=== PATIENT | female | born 1985 | race Caucasian/White ===

== ENCOUNTER 2017-01-19 15:59 | Emergency (ER) | payer SELFPAY ==
[2017-01-19 16:16] VITALS: BP 134/87
--- NOTE | 2017-01-19 17:08 | RAD ---
INDICATION: Right ankle injury. TECHNIQUE: 3 views of the right ankle were obtained. FINDINGS: Soft tissue swelling is noted along the anterolateral aspect of the ankle. No fracture is seen. Joint spaces appear maintained. IMPRESSION: SOFT TISSUE SWELLING, NO FRACTURE IS SEEN.
--- NOTE | 2017-01-19 17:09 | RAD ---
INDICATION: Right foot injury. TECHNIQUE: 2 views of the right foot were obtained. FINDINGS: The bones are normal alignment. No fracture is seen. Joint spaces appear maintained. IMPRESSION: NO EVIDENCE FOR FRACTURE.
[2017-01-19] MEDS ORDERED: Naproxen TAB* 250 MG PO ONE (17:13)
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
== END 2017-01-19 17:31 | disposition home or self-care (01) ==
LOC: UCEAST 15:59
DX: S93.401A Sprain of unspecified ligament of right ankle, initial encounter (principal); X50.1XXA Overexertion from prolonged static or awkward postures, initial encounter; Y93.89 Activity, other specified; Y92.89 Other specified places as the place of occurrence of the external cause; Y99.0 Civilian activity done for income or pay; F12.90 Cannabis use, unspecified, uncomplicated; F17.210 Nicotine dependence, cigarettes, uncomplicated
CPT/HCPCS: 99213; A9270-GY; G0463

== ENCOUNTER 2017-03-20 23:05 | Emergency (ER) | payer OTHER ==
[2017-03-20 23:22] VITALS: BP 116/89
== END 2017-03-20 23:38 | disposition left against medical advice (07) ==
LOC: ED 23:05
DX: R11.10 Vomiting, unspecified (principal); Z53.21 Procedure and treatment not carried out due to patient leaving prior to being seen by health care provider

== ENCOUNTER 2017-10-16 05:35 | Emergency (ER) | payer SELFPAY ==
[2017-10-16] MEDS ORDERED: oxyCODONE/Acetamin 5/325 MG* TAB PO ONE (06:04)
[2017-10-16] MEDS ORDERED: Ibuprofen TAB* 800 MG PO ONE (06:04)
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
[2017-10-16 09:06] VITALS: BP 154/92
== END 2017-10-16 09:05 ==
LOC: ED 05:35
DX: R51 Headache (principal); Z04.71 Encounter for examination and observation following alleged adult physical abuse
CPT/HCPCS: 70450; 70486; 72125; A9270-GY

== ENCOUNTER 2018-03-18 03:32 | Emergency (ER) | payer OTHER ==
[2018-03-18] MEDS ORDERED: diPHENhydraMINE IV* 50 MG/ML 1 ml VIAL (BENADRYL) ONE (03:53)
[2018-03-18] MEDS ORDERED: LORazepam INJ* 2 MG/ML 1 ML VIAL ONE (03:53)
[2018-03-18] MEDS ORDERED: Haloperidol INJ IV/IM* 5 MG/ML AMP ONE (03:54)
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
[2018-03-18] MEDS ORDERED: Haloperidol INJ IV/IM* 5 MG/ML AMP IM ONE (04:10)
[2018-03-18] MEDS ORDERED: LORazepam INJ* 2 MG/ML 1 ML VIAL IM ONE (04:10)
[2018-03-18] MEDS ORDERED: diPHENhydraMINE IV* 50 MG/ML 1 ml VIAL (BENADRYL) IM ONE (04:11)
[2018-03-18 04:13] LABS: Urine Appearance Clear; Urine Blood Negative (Negative); Urine Color Straw; Urine Ketones Negative (Negative); Urine Protein Negative (Negative); Urine Specific Gravity 1.002 (1.010-1.030); Urine Urobilinogen Negative (Negative)
[2018-03-18 04:51] LABS: ABS Basophils 0.2 10^3/ul (0-0.2); ABS Eosinophils 0.5 10^3/ul (0-0.6); ABS Lymphocytes 2.2 10^3/ul (1.0-4.8); ABS Monocytes 0.6 10^3/ul (0-0.8); ABS Nucleated RBC 0 10^3/ul; Eosinophil % 5.4 % (0-6); Hematocrit 45 % (35-47); Hemoglobin 15.5 g/dl (12.0-16.0); Lymphocyte % 26.3 % (25-47); Mean Corpuscular HGB Conc 35 g/dl (31-36); Mean Corpuscular Hemoglobin 29 pg (27-31); Mean Corpuscular Volume 85 fL (80-97); Mean Platelet Volume 8.4 um3 (7.4-10.4); Nucleated Red Blood Cells % 0.1; Platelet Count 280 10^3/ul (150-450); Red Blood Count 5.26 10^6/ul (4.00-5.40); Red Cell Distribution Width 14 % (10.5-15); White Blood Count 8.4 10^3/ul (3.5-10.8)
[2018-03-18 05:09] LABS: EGFR Non-African American 88.5 (>60)
--- NOTE | 2018-03-18 07:13 | ED ---
Course/Dx - Diagnoses Provider Diagnoses: Alcohol intoxication Discharge - Discharge Plan Referrals: Jorge Hernandez MD [Primary Care Provider] -
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
[2018-03-18 16:14] VITALS: BP 125/87
== END 2018-03-18 16:05 | disposition home or self-care (01) ==
LOC: ED 03:32
DX: F10.129 Alcohol abuse with intoxication, unspecified (principal); S09.90XA Unspecified injury of head, initial encounter; W19.XXXA Unspecified fall, initial encounter; F17.210 Nicotine dependence, cigarettes, uncomplicated
CPT/HCPCS: 36415; 70450; 80053; 80307; 80320; 80329; 81003; 84443; 84702; 85025; 96372; 99284; G0480; J1200; J1630; J2060

== ENCOUNTER 2018-04-12 17:24 | Emergency (ER) | payer MEDICAID ==
[2018-04-12 17:55] VITALS: BP 128/88
--- NOTE | 2018-04-12 18:27 | RAD ---
Indication: Right wrist injury. 3 views of the wrist demonstrates no fracture. No other bone or joint abnormality is identified. IMPRESSION: NO FRACTURE OF THE WRIST IS NOTED.
[2018-04-12] MEDS ORDERED: Ibuprofen TAB* 400 MG PO ONE (18:53)
== END 2018-04-12 19:40 | disposition left against medical advice (07) ==
LOC: UCEAST 17:24
DX: S69.91XA Unspecified injury of right wrist, hand and finger(s), initial encounter (principal); X58.XXXA Exposure to other specified factors, initial encounter; Y93.9 Activity, unspecified; Y92.9 Unspecified place or not applicable
CPT/HCPCS: 99212; A9270-GY; G0463

== ENCOUNTER → 2019-01-27 16:57 | Emergency (ER) | payer OTHER ==
[2019-01-27 17:12] VITALS: BP 143/91
--- NOTE | 2019-01-27 17:38 | UC ---
Throat Pain/Nasal Kartik HPI - HPI Summary HPI Summary: 33 yo female presents with left eye redness and drainage for the last 2 days. Also has some sinus pain/pressure/congestion for the last week. Also has left upper tooth pain and swelling with ?abscess for the last 2 weeks. She has been taking tylenol with no relief of her symptoms. She is tolerating po well and eating and drinking as normal. Denies fever, chills, sore throat, cough, rash. - History of Current Complaint Chief Complaint: UCEye Stated Complaint: EYE COMPLAINT BODY ACHES Time Seen by Provider: 01/27/19 17:38 Hx Obtained From: Patient Hx Last Menstrual Period: 3 WEEKS AGO Onset/Duration: Gradual Onset Severity: Mild Pain Intensity: 2 Pain Scale Used: 0-10 Numeric - Allergies/Home Medications Allergies/Adverse Reactions: Allergies Allergy/AdvReac Type Severity Reaction Status Date / Time No Known Allergies Allergy Verified 01/27/19 17:12 PMH/Surg Hx/FS Hx/Imm Hx - Additional Past Medical History Additional PMH: None - Surgical History Surgical History: Yes Surgery Procedure, Year, and Place: csection x's 2. MOUTH SURGERY CHILD - Family History Known Family History: Positive: Cardiac Disease - CAD to father, Diabetes - Social History Lives: With Family Alcohol Use: Occasionally Alcohol Amount: 1-2 drinks per week Substance Use Type: None Substance Use Comment - Amount & Last Used: this morning last time Smoking Status (MU): Current Every Day Smoker Type: Cigarettes, Cigars Amount Used/How Often: 1/2 ppd Length of Time of Smoking/Using Tobacco: 16 yrs Have You Smoked in the Last Year: Yes Household Exposure Type: Cigarettes - Immunization History Most Recent Influenza Vaccination: never Most Recent Tetanus Shot: up to date Review of Systems All Other Systems Reviewed And Are Negative: Yes Constitutional: Positive: Negative Skin: Positive: Negative Eyes: Positive: Drainage, Eye Redness ENT: Positive: Dental Pain, Ear Ache, Nasal Discharge, Sinus Congestion, Sinus Pain/Tenderness Respiratory: Positive: Negative Cardiovascular: Positive: Negative Gastrointestinal: Positive: Negative Neurovascular: Positive: Negative Neurological: Positive: Negative Psychological: Positive: Negative Physical Exam - Summary Physical Exam Summary: GENERAL: NAD. WDWN. No pain distress. SKIN: No rashes, sores, lesions, or open wounds. HEENT: Head: AT/NC Eyes: EOM intact. PERRLA. LEFT EYE: Mild scleral injection. Conjunctiva with mild erythema and inflammation. Mild clear/yellow discharge. RIGHT EYE: Conjunctiva clear without inflammation or discharge. No FBs appreciated Ears: Hearing grossly normal. TMs intact, no bulging, erythema, or edema. Nose: Nasal mucosa mildly swollen and erythematous without discharge. TTP maxillary sinus. Positive post nasal drip Throat: Posterior oropharynx without exudates, erythema, or tonsillar enlargement. Uvula midline. NECK: Supple. Nontender. No lymphadenopathy. CHEST: CTAB. No r/r/w. No accessory muscle use. Breathing comfortably and in no distress. CV: RRR. Without m/r/g. Pulses intact. NEURO: Alert. PSYCH: Age appropriate behavior. Triage Information Reviewed: Yes Vital Signs: Initial Vital Signs Temp 98 F 01/27/19 17:05 Pulse 96 01/27/19 17:05 Resp 16 01/27/19 17:05 BP 143/91 01/27/19 17:05 Pulse Ox 98 01/27/19 17:05 Vital Signs Reviewed: Yes Dental: Positive: Percussion Tenderness @ - Tooth #4 and Tooth #3, Abscess @ - Tooth #4 and Tooth #3. Negative: Dental Fracture @, Cellulitis @, Cervical Lymphadenopathy, Bleeding Throat Pain/Nasal Course/Dx - Course Course Of Treatment: Tooth #4 and Tooth #3 abscess. Sinusitis. Will treat for both with Augmentin and her sinusitis/otalgia with flonase. Left eye conjunctivitis - will treat with ofloxacin. - Differential Dx/Diagnosis Provider Diagnosis: Sinusitis, Dental abscess, Conjunctivitis Discharge - Sign-Out/Discharge Documenting (check all that apply): Patient Departure All imaging exams completed and their final reports reviewed: No Studies - Discharge Plan Condition: Stable Disposition: HOME Prescriptions: Amoxicillin/Clavulanate TAB* [Augmentin TAB 875*] 875 mg PO BID #14 tab Fluticasone NASAL SPRAY 50MCG* [Flonase NASAL SPRAY 50MCG*] 2 spray BOTH NARES DAILY #1 btl Ofloxacin 0.3% (Eye Drop) [Ocuflox OPTH 0.3% (Eye Drop)] 1 - 2 drop BOTH EYES Q4H #1 btl Patient Education Materials: Dental Abscess (ED), Sinusitis (ED), Conjunctivitis (ED) Referrals: Jorge Hernandez MD [Primary Care Provider] - Additional Instructions: If you develop a fever, shortness of breath, chest pain, new or worsening symptoms - please call your PCP or go to the ED immediately. Your blood pressure was high at todays visit. Please see your primary provider within 4 weeks for recheck and re-evaluation. - Billing Disposition and Condition Condition: STABLE Disposition: Home - Attestation Statements Provider Attestation: Per institutional requirements, I have reviewed the chart, however, I was not consulted specifically or made aware of this patient by the midlevel provider. I did not personally evaluate, interact with , or disposition this patient.
== END | disposition home or self-care (01) ==
LOC: UCEAST 16:57
DX: H10.9 Unspecified conjunctivitis (principal); J32.9 Chronic sinusitis, unspecified; K04.7 Periapical abscess without sinus; F17.210 Nicotine dependence, cigarettes, uncomplicated
CPT/HCPCS: 99202; G0463

== ENCOUNTER 2019-03-13 15:48 | Emergency (ER) | payer OTHER ==
[2019-03-13 16:09] VITALS: BP 157/112
--- NOTE | 2019-03-13 16:21 | UC ---
Dental HPI - HPI Summary HPI Summary: Left sided tooth pain starting yesterday. Today with more swelling and pain. Previous fracture of the tooth. - History of Current Complaint Chief Complaint: UCDentalProblem Stated Complaint: DENTAL PAIN Time Seen by Provider: 03/13/19 16:11 Hx Obtained From: Patient Hx Last Menstrual Period: 3 WEEKS AGO ?: No Onset/Duration: Sudden Onset, Lasting Days - 2, Worse Since - today with swelling and severe pain. Severity: Severe Pain Intensity: 10 Aggravating Factor(s): Chewing Alleviating Factor(s): Nothing Related History: Swelling, Other - fracture - Allergies/Home Medications Allergies/Adverse Reactions: Allergies Allergy/AdvReac Type Severity Reaction Status Date / Time No Known Allergies Allergy Verified 03/13/19 16:09 Home Medications: Home Medications Ibuprofen TAB* [Advil TAB*] 200 mg PO Q6H PRN 03/13/19 [History Confirmed ] PMH/Surg Hx/FS Hx/Imm Hx Previously Healthy: Yes - Surgical History Surgical History: Yes Surgery Procedure, Year, and Place: csection x's 2. MOUTH SURGERY CHILD - Family History Known Family History: Positive: None, Cardiac Disease - CAD to father, Diabetes - Social History Occupation: Employed Full-time Lives: Alone Alcohol Use: Occasionally Alcohol Amount: 1-2 drinks per week Substance Use Type: None Substance Use Comment - Amount & Last Used: this morning last time Smoking Status (MU): Current Every Day Smoker Type: Cigarettes, Cigars Amount Used/How Often: 1/2 ppd Length of Time of Smoking/Using Tobacco: 16 yrs Have You Smoked in the Last Year: Yes Household Exposure Type: Cigarettes - Immunization History Most Recent Influenza Vaccination: never Most Recent Tetanus Shot: up to date Review of Systems All Other Systems Reviewed And Are Negative: Yes Constitutional: Positive: Fatigue ENT: Positive: Dental Pain Respiratory: Positive: Cough Is Patient Immunocompromised?: No Physical Exam Triage Information Reviewed: Yes Appearance: Well-Appearing, Well-Nourished, Pain Distress - severe pain, crying Vital Signs: Initial Vital Signs Temp 99.1 F 03/13/19 16:03 Pulse 96 03/13/19 16:03 Resp 20 03/13/19 16:03 BP 157/112 03/13/19 16:03 Pulse Ox 100 03/13/19 16:03 Vital Signs Reviewed: Yes Eyes: Positive: Conjunctiva Inflamed - with crying. ENT: Positive: Pharynx normal, TMs normal Dental: Positive: Percussion Tenderness @ - #12, Gross Decay/Caries @ - #12, Dental Fracture @ - #12, Abscess @ - #12 Neck exam: Normal Respiratory Exam: Normal Cardiovascular Exam: Normal Musculoskeletal Exam: Normal Neurological Exam: Normal Psychological Exam: Normal Skin Exam: Normal Dental Complaint Course/Dx - Differential Dx/Diagnosis Differential Diagnosis/Dx: Dental Abscess, Dental Caries, Fractured Tooth, Gingivitis Provider Diagnosis: Dental abscess Discharge - Sign-Out/Discharge Documenting (check all that apply): Patient Departure All imaging exams completed and their final reports reviewed: No Studies - Discharge Plan Condition: Stable Disposition: HOME Prescriptions: Oxycodone HCl/Acetaminophen [Endocet 5-325 Tablet] 1 each PO Q4HR PRN #20 tablet MDD 6 PRN Reason: Pain (Dental) Penicillin VK 500 MG TAB(NF) [Penicillin VK 500 mg Tab] 500 mg PO QID #40 tab Patient Education Materials: Dental Abscess (ED), Penicillin V (By mouth), Oxycodone/Acetaminophen (By mouth) Referrals: Jorge Hernandez MD [Primary Care Provider] - 3 Days (Recheck on blood pressure. Make follow up with the dentist as well.) Additional Instructions: Smoking Cessation Tricks. 1. Cut down by 1 cigarette per day every 2-3 days. Write the number of smokes for that day on the calendar. 2. Identify triggers to smoking: after meals, on the phone, in the car, with coffee, on breaks at work, etc. 3. Formulate a plan with a behavior to replace the smoking. Fireballs in the car , doodle pad on the phone, flavored creamer for the coffee, go for a walk after a meal or on break at work. 4. For stress smokes do deep breathing relaxation. Breath deep in through the nose hold the breath in for a few seconds then breath out slowly through the mouth. - Billing Disposition and Condition Condition: STABLE Disposition: Home
== END 2019-03-13 16:58 | disposition home or self-care (01) ==
LOC: UCCORT 15:48
DX: K04.7 Periapical abscess without sinus (principal); F17.210 Nicotine dependence, cigarettes, uncomplicated
CPT/HCPCS: 99212; G0463